=== PATIENT | female | born 1960 | race Caucasian/White ===

== ENCOUNTER 2023-03-23 09:24 | Emergency (ER) | payer BC ==
[~2023-03-23] VITALS: Ht 162.6 cm; Wt 85.9 kg
[2023-03-23 12:21] VITALS: BP 152/83
[2023-03-23] MEDS ORDERED: ketorolac trometh inj. 60 MG/2 ML VIAL IM ONE (13:30)
[2023-03-23] MEDS ORDERED: NAPR-56 PO (13:32)
[2023-03-23] MEDS ORDERED: TRAM50TA2 PO (13:32)
== END 2023-03-23 14:01 | disposition home or self-care (01) ==
LOC: ER 09:25
DX: M79.604 Pain in right leg (principal); R10.31 Right lower quadrant pain; M25.551 Pain in right hip; E11.9 Type 2 diabetes mellitus without complications; G89.29 Other chronic pain; Z60.2 Problems related to living alone; W01.0XXA Fall on same level from slipping, tripping and stumbling without subsequent striking against object, initial encounter; Y93.89 Activity, other specified; Y92.89 Other specified places as the place of occurrence of the external cause; Y99.8 Other external cause status
CPT/HCPCS: 73502; 73564; 93971; 96372; 99285; J1885